=== PATIENT | male | born 1985 | race Caucasian/White ===

== ENCOUNTER 2020-02-21 14:08 | Emergency (ER) | payer SELFPAY ==
[~2020-02-21] VITALS: Ht 175.3 cm; Wt 77.5 kg
[2020-02-21 14:36] VITALS: BP 131/77
[2020-02-21] MEDS ORDERED: PENI250T2 PO (16:39)
== END 2020-02-21 16:58 | disposition home or self-care (01) ==
LOC: ER 14:09
DX: K08.89 Other specified disorders of teeth and supporting structures (principal); Z79.2 Long term (current) use of antibiotics
CPT/HCPCS: 99283